=== PATIENT | male | born 1960 | race Caucasian/White ===

== ENCOUNTER → 2017-01-23 | Outpatient (CLI) | payer BC ==
[~2017-01-23] VITALS: Ht 185.4 cm; Wt 85.9 kg
[~2017-01-23] MED LIST: AZOR 10/40 M1 TABLET PO; CARDIZEM CD,CA180 MG PO; CIPRODEX OTIC7.5 ML LEFT EAR; DAILY VALUE1 EACH PO; LISINOPRIL20 MG PO; MOTRIN IB200 MG PO; NICOTINE PATCH1 EAC2 TD; TAMBOCOR50 MG PO; XARELTO20 MG PO; ZANTAC150 MG PO; [UNRECOGNIZED DRUG - OTHER] PO
== END | disposition home or self-care (01) ==
LOC: AMB 10:00
DX: Z12.11 Encounter for screening for malignant neoplasm of colon (principal); R10.13 Epigastric pain; K29.70 Gastritis, unspecified, without bleeding; D12.5 Benign neoplasm of sigmoid colon; K64.8 Other hemorrhoids; R11.10 Vomiting, unspecified; I48.91 Unspecified atrial fibrillation; I10 Essential (primary) hypertension; Z72.0 Tobacco use; Z82.3 Family history of stroke; Z82.49 Family history of ischemic heart disease and other diseases of the circulatory system
CPT/HCPCS: 88305; 88342 TC; J3010